=== PATIENT | female | born 1990 | race Caucasian/White ===

== ENCOUNTER 2018-09-16 18:21 | Emergency (ER) | payer MEDICAID ==
[~2018-09-16] VITALS: Ht 167.6 cm; Wt 46.5 kg
[2018-09-16 18:31] VITALS: BP 122/65; PULSE 98; RESP 19; Ht 167.6 cm; Wt 46.5 kg
[2018-09-16] MEDS ORDERED: ACETAMINOPHEN 325 MG TAB PO STA (19:23)
--- NOTE | 2018-09-16 19:28 | ERD ---
ER Documentation Chief Complaint Chief Complaint C/O VAGINAL BLEEDING AND PAIN X30 MIN, 9 WEEKS PREG HPI Patient is a at 9 weeks presenting to the clinic for pelvic pain rated 4/10 and vaginal bleeding x 45 minutes ago. Patient reports an initial gush of blood 45 minutes ago and is now in small quantity. Patient denies vaginal discharge and urinary symptoms. ROS All systems reviewed and are negative except as per history of present illness. Medications Home Meds Active Scripts Acetaminophen* (Tylophen*) 500 Mg Capsule, 1 CAP PO Q6H PRN for PAIN AND OR ELEVATED TEMP, #20 CAP Prov:SINGH HDEZ PA-C 09/16/18 Allergies Allergies: Coded Allergies: No Known Allergy (Unverified , 09/16/18) PMhx/Soc Medical and Surgical Hx: pt denies Medical Hx, pt denies Surgical Hx History of Surgery: No Anesthesia Reaction: No Hx Neurological Disorder: No Hx Respiratory Disorders: No Hx Cardiac Disorders: No Hx Psychiatric Problems: No Hx Miscellaneous Medical Probl: No Hx Alcohol Use: No Hx Substance Use: No Hx Tobacco Use: No Smoking Status: Never smoker Physical Exam Vitals Vital Signs Date Temp Pulse Resp B/P (MAP) Pulse Ox O2 O2 Flow FiO2 Time Delivery Rate 09/16/18 98.7 98 19 122/65 99 18:31 (84) Physical Exam Const: No acute distress Head: Atraumatic Eyes: Normal Conjunctiva Resp: Clear to auscultation bilaterally Cardio: Regular rate and rhythm, no murmurs Abd: Soft, non tender, non distended. Normal bowel sounds. Mild suprapubic tenderness. Skin: No petechiae or rashes Back: No midline or flank tenderness Neur: Awake and alert Psych: Normal Mood and Affect Result Diagram: 09/16/181928 Results 24 hrs Laboratory Tests Test 09/16/18 19:29 White Blood Count 10.8 10^3/ul Red Blood Count 4.29 10^6/ul Hemoglobin 12.6 g/dl Hematocrit 37.5 % Mean Corpuscular Volume 87.4 fl Mean Corpuscular Hemoglobin 29.4 pg Mean Corpuscular Hemoglobin Concent 33.6 g/dl Red Cell Distribution Width 12.2 % Platelet Count 313 10^3/UL Mean Platelet Volume 9.7 fl Immature Granulocytes % 0.400 % Neutrophils % 68.2 % Lymphocytes % 24.0 % Monocytes % 6.3 % Eosinophils % 0.7 % Basophils % 0.4 % Nucleated Red Blood Cells % 0.0 /100WBC Immature Granulocytes # 0.040 10^3/ul Neutrophils # 7.3 10^3/ul Lymphocytes # 2.6 10^3/ul Monocytes # 0.7 10^3/ul Eosinophils # 0.1 10^3/ul Basophils # 0.0 10^3/ul Nucleated Red Blood Cells # 0.0 10^3/ul Urine Color YELLOW Urine Clarity SLIGHTLY CLOUDY Urine pH 6.0 Urine Specific [place] 1.029 Urine Ketones 2+ mg/dL Urine Nitrite NEGATIVE mg/dL Urine Bilirubin NEGATIVE mg/dL Urine Urobilinogen NEGATIVE mg/dL Urine Leukocyte Esterase NEGATIVE Jayda/ul Urine Microscopic RBC 2 /HPF Urine Microscopic WBC 1 /HPF Urine Mucus MODERATE /HPF Urine Hemoglobin 2+ mg/dL Urine Glucose NEGATIVE mg/dL Urine Total Protein NEGATIVE mg/dl Beta HCG, Quantitative 550932.0 mIU/ml Current Medications Medications Dose Sig/Eladia Start Time Status Last (Trade) Ordered Route PRN Stop Time Admin Dose Reason Admin 650 mg ONCE STAT 09/16/18 DC 09/16/18 Acetaminophen PO 19:23 19:30 (Tylenol 09/16/18 19:26 Tab) Procedures/MDM Patient was seen and evaluated for vaginal bleeding. Ultrasound showed Single live intrauterine with an estimated gestational age of 9 weeks 2 days based on ultrasound measurement. CBC is unremarkable, AB positive. Patient is stable as of now. Patient is stable and ready for discharge. Patient was advised to f/u with RN REGISTRY. Departure Diagnosis: Primary Impression: Vaginal bleeding Condition: Stable Patient Instructions: VBPG Referrals: [facility] Additional Instructions: F/U with RN REGISTRY. Patient advised to return to the ED immediately for new or worsening symptoms. Patient advised to follow up with primary care provider in the next 24-48 hours. Patient verbalized understanding and agrees with treatment plan and course of action. If patient has no primary care they may follow up with [facility] + [facility] [address] [place] [id number] or [facility] [address] [place] [address] or [facility] [address] [place] [address] SINGH HDEZ PA-C Sep 16, 2018 19:28
[2018-09-16] MEDS ORDERED: ACET500C5 PO (20:58)
== END 2018-09-16 21:05 | disposition home or self-care (01) ==
LOC: FTE 18:21
DX: O20.9 Hemorrhage in early pregnancy, unspecified (principal); R10.2 Pelvic and perineal pain; Z3A.09 9 weeks gestation of pregnancy
CPT/HCPCS: 36415; 76801; 81001; 84702; 85025; 86900; 86901; Z7502; Z7610